=== PATIENT | male | born 1985 | race American Indian/Alaskan Native ===

== ENCOUNTER 2018-01-27 22:53 | Emergency (ER) | payer MEDICARE ==
[2018-01-27 23:06] VITALS: BP 131/75; PULSE 90; RESP 16; TEMP 98.9; O2SAT 98
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
== END 2018-01-28 00:10 | disposition home or self-care (01) ==
LOC: H.ER 22:53
DX: S20.212A Contusion of left front wall of thorax, initial encounter (principal); S40.022A Contusion of left upper arm, initial encounter; V43.52XA Car driver injured in collision with other type car in traffic accident, initial encounter